=== PATIENT | male | born 1985 | race Caucasian/White ===

== ENCOUNTER 2018-06-06 12:13 | Emergency (ER) | payer BC, OTHER ==
[2018-06-06] MEDS ORDERED: Albuterol 2.5 MG/3 ML NEB.SOL* (0.083%) INH ONE (12:42)
--- NOTE | 2018-06-06 12:44 | UC ---
UC General HPI - HPI Summary HPI Summary: 5 WEEK HX OF COUGH WITH OCCASIONAL CONGESTION. + WHEEZING. NO CP OR SOB. NO FEVER. NO HX ASTHMA AND DOES NOT SMOKE. NO WEIGHT LOSS NIGHT SWEATS OR BLOOD IN SPUTUM. - History of Current Complaint Chief Complaint: UCRespiratory Stated Complaint: COUGH Time Seen by Provider: 06/06/18 12:38 Hx Obtained From: Patient Pain Intensity: 0 - Allergy/Home Medications Allergies/Adverse Reactions: Allergies Allergy/AdvReac Type Severity Reaction Status Date / Time No Known Allergies Allergy Verified 06/06/18 12:24 Home Medications: Home Medications Brompheniram/Phenylephrine/Dm [Cold/Cough Dm Childrens 2.5-1-5 mg/5Ml] 1 dose PO ONCE PRN 06/06/18 [History Confirmed 06/06/18] PMH/Surg Hx/FS Hx/Imm Hx Previously Healthy: Yes - Surgical History Surgical History: Yes Surgery Procedure, Year, and Place: Right knee orthoscopic - Social History Occupation: Employed Full-time Alcohol Use: Occasionally Substance Use Type: None Smoking Status (MU): Never Smoked Tobacco Review of Systems All Other Systems Reviewed And Are Negative: Yes Constitutional: Positive: Negative Skin: Positive: Negative Eyes: Positive: Negative ENT: Positive: Negative Respiratory: Positive: Cough Cardiovascular: Positive: Negative Gastrointestinal: Positive: Negative Genitourinary: Positive: Negative Motor: Positive: Negative Neurovascular: Positive: Negative Musculoskeletal: Positive: Negative Neurological: Positive: Negative Psychological: Positive: Negative Physical Exam Triage Information Reviewed: Yes Appearance: Well-Appearing Vital Signs: Initial Vital Signs Temp 98.1 F 06/06/18 12:22 Pulse 93 06/06/18 12:22 Resp 20 06/06/18 12:22 BP 155/99 06/06/18 12:22 Pulse Ox 99 06/06/18 12:22 Vital Signs Reviewed: Yes Eyes: Positive: Conjunctiva Clear ENT: Positive: Pharynx normal, TMs normal. Negative: Nasal congestion, Nasal drainage Neck: Positive: Supple, Nontender, No Lymphadenopathy Respiratory: Positive: No respiratory distress, Decreased breath sounds, Other: - OCCASIONAL RHONCHI/WHEEZES Cardiovascular: Positive: RRR, No Murmur Abdomen Description: Positive: Nontender, No Organomegaly, Soft Bowel Sounds: Positive: Present Musculoskeletal: Positive: ROM Intact Neurological: Positive: Alert Psychological: Positive: Age Appropriate Behavior Skin Exam: Normal Diagnostics - Radiology No standard instances Radiology Interpretation Completed By: Radiologist - CXR=NAD Re-Evaluation - Re-Evaluation First Eval Re-Evaluation Time: 13:10 Change: Improved - BETTER AERATION. WHEEZES RESOLVED. SCATTERED MILD RHONCHI NOTED. Course/Dx - Course Course Of Treatment: REPEAT BP IMPROVED - Differential Dx - Multi-Symptom Differential Diagnoses: Other - CXR=NO LESIONS OR INFLITRATES. WILL TX FOR THE BRONCHOSPASM AND FOR PRESMPTIVE BACTERIAL INFECTION WITH CLOSE F/U FOR RECHECK. - Diagnoses Provider Diagnosis: Cough, Bronchospasm, acute Discharge - Sign-Out/Discharge Documenting (check all that apply): Patient Departure All imaging exams completed and their final reports reviewed: Yes - Discharge Plan Condition: Stable Disposition: HOME Prescriptions: Albuterol HFA INHALER* [Ventolin HFA Inhaler*] 2 puff INH Q6H #1 mdi Azithromycin TAB* [Zithromax TAB (Z-WOODROW) 250 mg #6 tabs] 2 tab PO .TODAY, THEN 1 DAILY #1 woodrow predniSONE [Prednisone 20 MG TAB] 40 mg PO DAILY 5 Days #10 tablet Patient Education Materials: Bronchospasm (ED), Acute Cough (ED) Referrals: HEBER Black [Medical Doctor] - 7 Days Additional Instructions: CALL TODAY FOR THE FOLLOW UP APPOINTMENT. - Billing Disposition and Condition Condition: STABLE Disposition: Home - Attestation Statements Provider Attestation: I was available for consult. This patient was seen by the ZANE. The patient was not presented to, seen by, or examined by me. -[place]
[2018-06-06 12:50] VITALS: BP 130/90
== END 2018-06-06 13:24 | disposition home or self-care (01) ==
LOC: UCCORT 12:13
DX: J98.01 Acute bronchospasm (principal); R05 Cough
CPT/HCPCS: 71046; 99202; G0463